=== PATIENT | female | born 1975 | race Asian ===

== ENCOUNTER 2017-11-15 19:28 | Emergency (ER) | payer MEDICAID ==
[~2017-11-15] VITALS: Ht 157.5 cm; Wt 63.5 kg
[2017-11-15 19:50] VITALS: BP_SYST 146
[2017-11-15] MEDS ORDERED: HYDROcodone/ACETAMIN 5-325 MG TAB (NORCO/ VICODIN) PO ONE (21:30)
[2017-11-15 22:40] VITALS: BP_SYST 146
== END 2017-11-15 22:40 | disposition home or self-care (01) ==
LOC: SED 19:28
DX: S52.121A Displaced fracture of head of right radius, initial encounter for closed fracture (principal); R03.0 Elevated blood-pressure reading, without diagnosis of hypertension; W07.XXXA Fall from chair, initial encounter; Y93.89 Activity, other specified; Y92.89 Other specified places as the place of occurrence of the external cause; Y99.8 Other external cause status
CPT/HCPCS: 99284

== ENCOUNTER 2018-08-09 15:12 | Emergency (ER) | payer MEDICAID ==
[~2018-08-09] VITALS: Ht 160 cm; Wt 63.5 kg
[2018-08-09 15:23] VITALS: BP_SYST 135
--- NOTE | 2018-08-09 16:20 | NUR ---
Pt to bed 1
--- NOTE | 2018-08-09 16:24 | NUR ---
patient [id number] arriving from home with several left ear pain x 2 months with discharge x 1 day. patient states she saw her primary who sent her to a specalist. specalist appointment is in september but she could not wait. patient has yellow/clear discharge from her left ear. discharge does not have a smell at this time. no other complaint or injury at this time.
--- NOTE | 2018-08-09 16:39 | NUR ---
ER at bedside examining patient.
--- NOTE | 2018-08-09 16:55 | NUR ---
patient attempting to wonder around ER looking for the doctor while digging a right ear. reexplained MD instructions, waiting for medication and discharge. patient back in bed.
[2018-08-09] MEDS ORDERED: KETOROLAC TROMETHAMINE 30 MG VIAL IM ONE (17:00)
[2018-08-09] MEDS ORDERED: cefTRIAXone 1 GM VIAL IM ONE (17:00)
[2018-08-09] MEDS ORDERED: LIDOCAINE 1% 10 MG/ML, 20 ML MDV INJ ONE (17:15)
[2018-08-09] MEDS ORDERED: cefTRIAXone 1 GM VIAL ONE (17:19)
--- NOTE | 2018-08-09 17:28 | NUR ---
gave medciation as ordered. will continue to monitor.
--- NOTE | 2018-08-09 18:13 | NUR ---
Patient given written and verbal discharge instructions and verbalizes understanding. ER MD discussed with patient the results and treatment provided. Patient in stable condition. ID arm band removed. Rx of [place], amoxicillin given. Patient educated on pain management and to follow up with PMD. Pain Scale 0/10. Opportunity for questions provided and answered. Medication side effect fact sheet provided.
[2018-08-09 18:14] VITALS: BP_SYST 130
== END 2018-08-09 18:13 | disposition home or self-care (01) ==
LOC: SED 15:12
DX: S61.411A Laceration without foreign body of right hand, initial encounter (principal); W22.8XXA Striking against or struck by other objects, initial encounter; Y93.89 Activity, other specified; Y92.89 Other specified places as the place of occurrence of the external cause; Y99.8 Other external cause status
CPT/HCPCS: 96372; 99283; J0696; J1885; J2001